=== PATIENT | female | born 1950 | race Caucasian/White ===

== ENCOUNTER 2019-09-11 07:10 | Day surgery (SDC) | payer MEDICARE, BC ==
[2019-09-11] MEDS ORDERED: Sodium Chloride 0.9% 1,000 ML IV SCH (07:45)
[2019-09-11] MEDS ORDERED: Midazolam 1 MG/ML 2 ML SDV ONE (08:25)
[2019-09-11] MEDS ORDERED: fentaNYL 100 MCG/2 ML SDV ONE (08:25)
[2019-09-11] MEDS ORDERED: Propofol 200 MG/20 ML SDV ONE (08:25)
[2019-09-11 10:08] VITALS: BP 115/62; PULSE 47
--- NOTE | 2019-09-11 13:18 | OR ---
DATE OF PROCEDURE: 09/11/2019 SURGEON: Asad Hunter MD PROCEDURE: Colonoscopy. FINDINGS: 1. Diverticulosis, moderate, mostly limited to sigmoid colon in a traditional pattern. 2. No other gross abnormalities. COMPLICATIONS: None. DIRECTOR OF BANDS: None. ANESTHESIA: MAC. PREOPERATIVE DIAGNOSIS: Screening colonoscopy. POSTOPERATIVE DIAGNOSIS: Screening colonoscopy. RISKS: Risks, benefits, alternatives, and limitations including, but not limited to infection, bleeding, and perforation were explained to the patient, who wished to proceed. PROCEDURE IN DETAIL: The patient was placed in left lateral decubitus position. Digital rectal exam was performed without abnormality. Scope was introduced and advanced atraumatically to the ileocecal valve. A photo was taken of this. Scope was brought back through the ascending, transverse, descending colon, and retroflexed. The diverticulosis would be described as moderate, mostly concentrated in the sigmoid colon without evidence of bleeding or inflammation. No old or new blood. No colitis. No abnormalities on retroflexion. The patient tolerated the procedure well. Asad Hunter MD /[id number]
== END 2019-09-11 10:10 | disposition home or self-care (01) ==
LOC: JP.SDS 07:10 → MERGE 08:30 → JP.SDS 10:10
PROVIDERS: ATTEND Surgery
DX: Z12.11 Encounter for screening for malignant neoplasm of colon (principal); K57.30 Diverticulosis of large intestine without perforation or abscess without bleeding; Z88.5 Allergy status to narcotic agent
CPT/HCPCS: G0121; J2250; J2704; J3010; J7030